=== PATIENT | female | born 1970 | race Caucasian/White ===

== ENCOUNTER → 2020-04-29 | Outpatient (CLI) | payer OTHER ==
--- NOTE | 2020-04-29 11:23 | REP ---
INDICATION: CONTUSION COMPARISON: None. TECHNIQUE: Internal rotation, external rotation, and Y view. FINDINGS: Cortical irregularity and subtle spurring at the acromioclavicular joint is appreciated. There is no evidence for acute fracture or dislocation. Glenohumeral joint is intact and normal. Surrounding soft tissues are unremarkable. IMPRESSION: No acute fracture or dislocation. <Electronically signed by Minor Greenwood > 04/29/20 [id number]
--- NOTE | 2020-04-29 11:25 | REP ---
INDICATION: CONTUSION COMPARISON: None. TECHNIQUE: AP, lateral, bilateral oblique views left hand. FINDINGS: There is no oblique minimally displaced fracture through the 4th metacarpal bone with overlying soft tissue swelling. Remainder of examination appears normal. IMPRESSION: Oblique minimally displaced fracture through the 4th metacarpal bone. <Electronically signed by Minor Greenwood > 04/29/20 [id number]
--- NOTE | 2020-04-29 11:29 | REP ---
INDICATION: CONTUSION COMPARISON: None. TECHNIQUE: Two views of the right clavicle FINDINGS: No obvious clavicle fracture identified. Surrounding soft tissues are unremarkable. IMPRESSION: . No acute fracture or dislocation. <Electronically signed by Minor Greenwood > 04/29/20 [id number]
--- NOTE | 2020-04-29 11:37 | REP ---
INDICATION: CONTUSION COMPARISON: None. TECHNIQUE: Frontal view of the chest with multiple views of the right hemithorax. FINDINGS: Frontal view of the chest demonstrates no acute cardiopulmonary process, contusion, effusion, or pneumothorax. Multiple views of the right hemithorax demonstrates no acute rib fracture/injury or pathology. IMPRESSION: Normal rib series. No obvious acute right rib fracture. <Electronically signed by Minor Greenwood > 04/29/20 [id number]
== END ==
LOC: M WUC 10:38
PROVIDERS: ATTEND Physician Assistant
DX: S20.211A Contusion of right front wall of thorax, initial encounter (principal); S40.011A Contusion of right shoulder, initial encounter; S62.395A Other fracture of fourth metacarpal bone, left hand, initial encounter for closed fracture; X58.XXXA Exposure to other specified factors, initial encounter; Y92.89 Other specified places as the place of occurrence of the external cause